=== PATIENT | male | born 1980 | race Caucasian/White ===

== ENCOUNTER 2016-05-15 11:29 | Emergency (ER) | payer OTHER, MEDICAID ==
[2016-05-15] MEDS ORDERED: Diphtheria,Pertussis(Acell),Tetanus Vaccine 0.5 ML Syringe IM ONE (12:00)
[2016-05-15 12:01] VITALS: BP 165/99
--- NOTE | 2016-05-15 12:59 | EDM.PDOC ---
ED HPI Trauma - General Chief Complaint: Upper Extremity Injury/Pain Stated Complaint: left index finger injury Time Seen by Provider: 05/15/16 11:32 Source: Reports: Patient, RN, RN notes reviewed History Limitations: Reports: No limitations - History of Present Illness INITIAL COMMENTS - FREE TEXT/NARRATIVE: The patient presents to the emergency room at [facility] after he sustained a crush injury to the left distal index finger. The patient states while he was at work today he was moving some cinderblocks, and one of the cinderblocks slipped causing a crush injury to the left index finger. The patient denies any previous injury or trauma to the affected extremity. The patient denies any numbness tingling or paresthesia. This is a workers compensation claim. Symptom Onset Date: 05/15/16 Occurred When: just prior to arrival Occurred Where: work Method of Injury: other (crush injury) Severity: moderate Pain/Injury Location: Reports: upper extremity, left Consciousness: Reports: no loss of consciousness Associated Symptoms: Reports: no other symptoms Allergies/ADRs: Allergies No Known Allergies Allergy (Verified 05/15/16 12:01) Home Medications: Ambulatory Orders . [No Known Home Meds] 05/15/16 [Confirmed 05/15/16] Past Medical History Genitourinary History: Reports: Other (see below) Other Genitourinary History: testicle torsion - Past Surgical History GI Surgical History: Reports: Hernia repair/other Musculoskeletal Surgical History: Reports: Hip replacement Social & Family History - Tobacco Use Smoking Status *Q: Current Every Day Smoker Years of Tobacco use: 2 Packs/Tins Daily: 0.5 - Recreational Drug Use Recreational Drug Use: No Review of Systems - Review of Systems Review Of Systems: See Below Constitutional: Denies: chills, fever, weakness Respiratory: Denies: Shortness of Breath, Cough Cardiovascular: Denies: chest pain, palpitations Musculoskeletal: Reports: other (left index finger pain) Skin: Reports: wound (left distal index finger) Neurological: Reports: No Symptoms Trauma Exam - Physical Exam Exam: See Below Exam Limited By: No limitations General Appearance: Reports: alert, no apparent distress Head: Reports: atraumatic, normocephalic Respiratory Exam: Reports: no respiratory distress, lungs clear, normal breath sounds Cardiovascular: Reports: regular rate, rhythm Extremities: Reports: pain with movement (left index finger), tenderness Neurologic: Reports: alert, oriented x 3 Skin: Reports: Normal color, Warm/dry, Other (1.2 cm laceration to the lateral distal left index finger; nail partially avulsed; subungual hematoma present) ED TRAUMA EXTREMITY PROCEDURES - Laceration/Wound Repair Left Distal Finger Lac/wound length in cm: 1.2 (lateral left index finger) Appearance: subcutaneous, irregular, mildly contaminated Distal NVT: neuro & vascular intact, no tendon injury Anesthetic type: digital Local anesthesia - Lidocaine (Xylocaine): 1% with epi Local anesthetic volume: 5cc Exploration/Debridement/Repair: wound explored, in a bloodless field, no foreign material found, wound margins revised Closed with: sutures, dermabond Suture size: 4-0 # of sutures: 2 Suture type: interrupted, Running, simple Sterile dressing applied: nurse Tetanus status addressed: Yes Complications: No Course - Vital Signs Last Recorded V/S: Last Vital Signs Temp 35.5 C 05/15/16 11:35 Pulse 94 05/15/16 11:35 Resp 20 05/15/16 11:35 BP 165/99 H 05/15/16 11:35 Pulse Ox - Orders/Labs/Meds Orders: Active Orders 24 hr Category Date Time Status Vaccines to be Administered [RC] PER UNIT ROUTINE Care 05/15/16 12:01 Active Fingers Second Digit Lt F1 [CR] Stat Exams 05/15/16 11:46 Taken Meds: Medications Discontinued Medications Generic Name Dose Route Start Last Admin Trade Name Freq PRN Reason Stop Dose Admin Diphtheria/Tetanus/Acell Pertussis 0.5 ml 05/15/16 12:00 05/15/16 12:06 Adacel IM 05/15/16 12:01 0.5 ml .ONCE ONE Administration Lidocaine HCl 5 ml 05/15/16 11:46 05/15/16 12:09 Xylocaine-Mpf 1% INJECT 05/15/16 11:47 5 ml ONETIME ONE Administration Departure - Departure Time of Disposition: 13:00 Disposition: Home, Self-Care 01 Condition: good Clinical Impression: Finger fracture, left Crushing injury of left index finger Qualifiers: Encounter type: initial encounter Qualified Code(s): S67.191A - Crushing injury of left index finger, initial encounter Laceration of finger Qualifiers: Encounter type: initial encounter Qualified Code(s): S61.219A - Laceration without foreign body of unspecified finger without damage to nail, initial encounter Subungual hematoma of fingernail Qualifiers: Encounter type: initial encounter Qualified Code(s): S60.10XA - Contusion of unspecified finger with damage to nail, initial encounter Instructions: Finger Fracture, [id number] Referrals: Ro Chowdhury DO [Physician] - Forms: ED Department Discharge, Return to Work/School Form Additional Instructions: 1. Stay well hydrated and rest 2. Take OTC Tylenol/Advil as needed 3. Keep bandage in place until seen by primary 4. Work restriction: no work until seen by primary, no lifting >10 pounds with left arm/hand - Problem List Review Problem List Initiated/Reviewed/Updated: Yes - My Orders Last 24 Hours: My Active Orders 05/15/16 11:46 Fingers Second Digit Lt F1 [CR] Stat 05/15/16 12:01 Vaccines to be Administered [RC] PER UNIT ROUTINE - Assessment/Plan Last 24 Hours: My Active Orders 05/15/16 11:46 Fingers Second Digit Lt F1 [CR] Stat 05/15/16 12:01 Vaccines to be Administered [RC] PER UNIT ROUTINE
== END 2016-05-15 13:05 | disposition home or self-care (01) ==
LOC: VM.ED 11:29
DX: S62.631A Displaced fracture of distal phalanx of left index finger, initial encounter for closed fracture (principal); S61.211A Laceration without foreign body of left index finger without damage to nail, initial encounter; S60.122A Contusion of left index finger with damage to nail, initial encounter; F17.210 Nicotine dependence, cigarettes, uncomplicated; Z23 Encounter for immunization; W23.0XXA Caught, crushed, jammed, or pinched between moving objects, initial encounter; Y99.0 Civilian activity done for income or pay
CPT/HCPCS: 12001; 73140-F1; 90715; 99283